=== PATIENT | female | born 1990 | race Two or more races ===

== ENCOUNTER → 2019-05-14 | Outpatient (CLI) | payer SELFPAY ==
--- NOTE | 2019-05-14 17:18 | RADIOLOGY REPORT (SQ) ---
EXAM DESCRIPTION: U/S [id number] TRNABD 1GES W/ODOP COMPLETED DATE/TIME: 05/14/2019 3:33 pm REASON FOR STUDY: Z34.81 ENCOUNTER FOR SUPRVSN OF NORMAL , FIRST TRIMESTER Z34.81 ENCOUNTE R FOR SUPRVSN OF NORMAL , FIRST TRIM COMPARISON: None. TECHNIQUE: Transvaginal and transabdominal static and realtime grayscale images acquired of the pelv is. Additional selected spectral and color Doppler images recorded. All images stored on PACs. CLINICAL AGE: LMP 02/20/2019, SIDDHARTHA 11/27/2019, EGA 11 weeks and 6 days bHCG: Not available. LIMITATIONS: None. FINDINGS: UTERUS: Unremarkable in size measuring 10.8 x 7.4 x 6.6 cm. No masses. No anomalies. GESTATIONAL SAC: There is a hypoechoic structure within the endometrial canal measuring 1.9 x 2.8 x 2 .9 cm (mean sac diameter 2.5 cm). Within the sac there is a cystic structure compatible with a yolk sac. No pole identified. YOLK SAC: Yes. POLE: Not identified RIGHT ADNEXA: Normal ovary with normal vascular flow. No adnexal free fluid. No adnexal masses. LEFT ADNEXA: Normal ovary with normal vascular flow. No adnexal free fluid. No adnexal masses. FREE FLUID: None. OTHER: Cervix measures 3.2 cm with complex luminal fluid. IMPRESSION: Discordant ultrasound and clinical dates with without pole identified highly suspi cious for failed intrauterine . No beta HCG available for correlation. Recommend serial ul trasound and HCG for correlation. Trimester of : First trimester - 0 to 13 weeks. TECHNICAL DOCUMENTATION: JOB ID: [id number] [email or web address]- All Rights Reserved Reading location - IP/workstation name: [email or web address]
== END ==
LOC: RAD 14:26
PROVIDERS: ATTEND Midwife
DX: Z34.81 Encounter for supervision of other normal pregnancy, first trimester (principal)
CPT/HCPCS: 76801

== ENCOUNTER → 2019-05-17 | Outpatient (CLI) | payer SELFPAY | LOC: OCH 12:54 | DX: O02.1 Missed abortion (principal) | CPT/HCPCS: 36415; 84702 ==

== ENCOUNTER → 2019-06-03 | Outpatient (CLI) | payer SELFPAY ==
--- NOTE | 2019-06-03 16:36 | RADIOLOGY REPORT (SQ) ---
EXAM DESCRIPTION: U/S [id number] TRNABD 1GES W/ODOP COMPLETED DATE/TIME: 06/03/2019 11:24 am REASON FOR STUDY: ENCTR FOR SUPERVISION OF OTHER NORMAL , 1ST TRIMESTER (Z34.81) Z34.81 EN COUNTER FOR SUPRVSN OF NORMAL , FIRST TRIM COMPARISON: 05/14/2019 TECHNIQUE: Transabdominal static and realtime grayscale images acquired of the pelvis. Additional se lected spectral and color Doppler images recorded. All images stored on PACs. bHCG: Not available. CLINICAL DATES: 10 weeks days LIMITATIONS: None. FINDINGS: FETUS: Single Living intrauterine . ULTRASOUND EGA: 11 weeks 0 days ULTRASOUND SIDDHARTHA: 12/23/2019 EFW: Not applicable less than 20 weeks. CRL: 4.1 cm FHR: 157 beats per minute. SURVEY: Too early to assess. AMNIOTIC FLUID: Adequate amount. PLACENTA: Not yet developed due to early gestation. SUBCHORIONIC BLEED: No SIZE OF BLEED: Not applicable. UTERUS: No masses. No anomalies. CERVICAL LENGTH: 2.5 cm Closed. RIGHT ADNEXA: Normal ovary with normal vascular flow. No adnexal free fluid. No adnexal masses. LEFT ADNEXA: Normal ovary with normal vascular flow. No adnexal free fluid. No adnexal masses. FREE FLUID: None. OTHER: No other significant finding. IMPRESSION: LIVING INTRAUTERINE . EGA 11 weeks 0 days Trimester of : First trimester - 0 to 13 weeks. TECHNICAL DOCUMENTATION: JOB ID: [id number] [employer]- All Rights Reserved rev-11/30 Reading location - IP/workstation name: [email or web address]
== END ==
LOC: RAD 10:21
PROVIDERS: ATTEND Midwife
DX: Z34.81 Encounter for supervision of other normal pregnancy, first trimester (principal)
CPT/HCPCS: 76801

== ENCOUNTER → 2019-08-07 | Outpatient (CLI) | payer SELFPAY ==
--- NOTE | 2019-08-07 15:59 | RADIOLOGY REPORT (SQ) ---
EXAM DESCRIPTION: U/S OB 14+ TRNABD 1GES W/O DOP COMPLETED DATE/TIME: 08/07/2019 3:42 pm REASON FOR STUDY: Z34.82 ENCOUNTER FOR SUPRVSN OF NORMAL , SECOND TRIMESTER Z34.82 ENCOUNT ER FOR SUPRVSN OF NORMAL , SECOND TRI COMPARISON: 06/03/2019. TECHNIQUE: Static and Dynamic grayscale imaging performed of gravid uterus using transabdominal appr oach. Additional selected color Doppler and spectral images recorded. All stored on PACS. LIMITATIONS: None. FINDINGS: FETUSES SEEN:1 EGA: 20 week 1 day. Calculated using BPD,FL,HC,AC documented on images. No discrepancy with clinical dates. SIDDHARTHA: 12/24/2019. EFW: 348 grams PERCENTILE: Not available. LVP: 4.6 x 7.1 cm. PLACENTA: Posterior. Incidental placental parisi. PRESENTATION: Cephalic. ANATOMY: HEART RATE: 149 beats per minute. FOUR CHAMBER HEART: Visualized. THREE VESSEL CORD: Yes. CORD INSERTION: Visualized. KIDNEYS AND BLADDER: Visualized. Appear normal. STOMACH: Visualized. Appears normal. SPINE: Normal as visualized. BRAIN AND LATERAL VENTRICLES: Visualized. Appear normal. OTHER: No other significant finding. MATERNAL ADNEXA: Maternal ovaries not visualized. CERVICAL LENGTH: 2.0 cm. Closed. OTHER: No other significant finding. IMPRESSION: LIVING INTRAUTERINE . ESTIMATED GESTATIONAL AGE 20 WEEK 1 DAY. NO VISUALIZED ANOMALIES. Trimester of : Second trimester - 13 weeks 1 day to 27 weeks 6 days. TECHNICAL DOCUMENTATION: JOB ID: [id number] [employer]- All Rights Reserved Reading location - IP/workstation name: [email or web address]
== END ==
LOC: RAD 14:39
PROVIDERS: ATTEND Midwife
DX: Z34.82 Encounter for supervision of other normal pregnancy, second trimester (principal); Z3A.20 20 weeks gestation of pregnancy
CPT/HCPCS: 76805

== ENCOUNTER 2019-12-18 04:58 | Inpatient (IN) | payer SELFPAY ==
[2019-12-11 11:19] LABS: ABSOLUTE EOSINOPHILS # (AUTO) 0.1 10^3/uL (0.0-0.6); ABSOLUTE LYMPHOCYTES (AUTO) 1.9 10^3/uL (0.5-4.7); ABSOLUTE MONOCYTES (AUTO) 0.6 10^3/uL (0.1-1.4); ABSOLUTE NEUT (AUTO) 4.2 10^3/uL (1.7-8.2); BASOPHILS % (AUTO) 0.6 % (0-2); EOSINOPHILS % (AUTO) 0.8 % (0-6); HEMATOCRIT 33.6 % (36.0-47.0); HEMOGLOBIN 11.8 g/dL (12.0-15.5); LYMPHOCYTES % (AUTO) 28.5 % (13-45); MEAN CORPUSCULAR HEMOGLOBIN 33.1 pg (27.0-33.4); MEAN CORPUSCULAR HGB CONC 35.2 g/dL (32.0-36.0); MEAN CORPUSCULAR VOLUME 94 fl (80-97); MONOCYTES % (AUTO) 8.1 % (3-13); PLATELET COUNT 213 10^3/uL (150-450); RED BLOOD COUNT 3.58 10^6/uL (3.72-5.28); RED CELL DISTRIBUTION WIDTH 13.4 % (11.5-14.0); TOTAL CELLS COUNTED % (AUTO) 100 %; WHITE BLOOD COUNT 6.8 10^3/uL (4.0-10.5)
[2019-12-11 11:25] LABS: APPEARANCE,URINE SLIGHTLY-CLOUDY; BILIRUBIN,URINE NEGATIVE (NEGATIVE); CALCIUM OXALATE CRYSTALS,URINE RARE /HPF; COLOR,URINE YELLOW; GLUCOSE, URINE NEGATIVE (NEGATIVE); KETONES,URINE NEGATIVE (NEGATIVE); LEUKOCYTE ESTERASE,URINE NEGATIVE (NEGATIVE); NITRITE,URINE NEGATIVE (NEGATIVE); PROTEIN,URINE NEGATIVE (NEGATIVE); URINE SPECIFIC GRAVITY 1.021
[2019-12-11 11:44] LABS: URINE AMPHETAMINES SCREEN NEGATIVE; URINE BARBITURATES SCREEN NEGATIVE; URINE BENZODIAZEPINES SCREEN NEGATIVE; URINE COCAINE SCREEN NEGATIVE; URINE MARIJUANA (THC) SCREEN NEGATIVE; URINE METHADONE SCREEN NEGATIVE; URINE PHENCYCLIDINE SCREEN NEGATIVE
[2019-12-18] MEDS ORDERED: RINGERS SOLUTION,LACTATED 1,000 ML IV PRN ×2 (05:00→09:01)
[2019-12-18] MEDS ORDERED: LACTATED RINGERS 1000 ML IV PRN (05:00)
[2019-12-18] MEDS ORDERED: CEFAZOLIN SODIUM 2 GM in DEXTROSE 5%-WATER 100 ML IV PRN (05:00)
[2019-12-18] MEDS ORDERED: RINGERS SOLUTION,LACTATED 1,000 ML IV ONE (06:30)
[2019-12-18] MEDS ORDERED: OXYTOCIN/0.9 % SODIUM CHLORIDE 30 UNIT/500 ML RTUINJ ONE (07:25)
[2019-12-18] MEDS ORDERED: KETOROLAC TROMETHAMINE INJ/PF 30 MG/1 ML SDV ONE (07:25)
[2019-12-18] MEDS ORDERED: PHENYLEPHRINE HCL INJ/PF 10 MG/1 ML SDV ONE (07:25)
[2019-12-18] MEDS ORDERED: FENTANYL CITRATE INJ/PF 100 MCG/2 ML AMPUL ONE (07:25)
[2019-12-18] MEDS ORDERED: OXYTOCIN 10 UNIT/ML VIAL ONE (07:25)
[2019-12-18] MEDS ORDERED: ONDANSETRON HCL INJ/PF 4 MG/2 ML SDV ONE (07:26)
[2019-12-18] MEDS ORDERED: ACETAMINOPHEN 1,000 MG/100 ML RTUPB IV ONE (07:26)
[2019-12-18] MEDS ORDERED: CITRIC ACID/SODIUM CITRATE ORAL SOLN 15 ML UDCUP ONE (07:35)
[2019-12-18] MEDS ORDERED: DIPHENHYDRAMINE HCL 50 MG/ML VIAL IV PRN (08:11)
[2019-12-18] MEDS ORDERED: PROMETHAZINE HCL INJ 25 MG/1 ML VIAL IV PRN ×2 (08:11→09:01)
[2019-12-18] MEDS ORDERED: MORPHINE SULFATE 10 MG/ML INJ IV PRN (08:11)
[2019-12-18] MEDS ORDERED: MEPERIDINE HCL/PF INJ 25 MG/1 ML DISP.SYRIN IV PRN (08:11)
[2019-12-18] MEDS ORDERED: FENTANYL CITRATE INJ/PF 100 MCG/2 ML AMPUL IV PRN ×3 (08:11)
[2019-12-18] MEDS ORDERED: OXYTOCIN/0.9 % SODIUM CHLORIDE 30 UNIT/500 ML RTUINJ IV PRN (09:01)
[2019-12-18] MEDS ORDERED: SIMETHICONE 80 MG TAB.CHEW PO PRN (09:01)
[2019-12-18] MEDS ORDERED: DIPH/PERTUSS(ACELL)/TETANUS VAC/PF 0.5 ML SYR (>=10YO) IM PRN (09:01)
[2019-12-18] MEDS ORDERED: ACETAMINOPHEN 1,000 MG/100 ML RTUPB IV PRN (09:01)
[2019-12-18] MEDS ORDERED: OXYCODONE-ACETAMINOPHEN 5-325 MG TABLET PO PRN (09:01)
[2019-12-18] MEDS ORDERED: MEASLES,MUMPS&RUBELLA VACC/PF 0.5 ML VIAL SUBCUT PRN (09:01)
[2019-12-18] MEDS ORDERED: ACETAMINOPHEN 325 MG TABLET PO PRN (09:01)
--- NOTE | 2019-12-18 09:07 | Operative Report ---
Operative Report DATE OF SURGERY: 12/18/19 PREOPERATIVE DIAGNOSIS: Repeat and tubal ligation with Filshie clips POSTOPERATIVE DIAGNOSIS: Same OPERATION: Repeat via low transverse uterine incision and tubal ligation with Filshie clips SURGEON: ALDA BURNS ANESTHESIA: Spinal TISSUE REMOVED OR ALTERED: Placenta COMPLICATIONS: None ESTIMATED BLOOD LOSS: 400 cc INTRAOPERATIVE FINDINGS: Dense adhesions from the uterus to the anterior abdominal wall. Viable . Normal tubes and ovaries. PROCEDURE: Patient was taken to the OR and placed in supine position after her spinal anesthesia. She is prepared and draped in sterile fashion. Lawton was placed for drainage of the bladder. The previous incision was retracted directly over top the pubic symphysis. For this reason an incision was made 4 to 5 cm above this area. Low transverse incision was made and carried down the level of the fascia. The fascial incision was made with knife and extended bilaterally with curved Mc scissors. The fascia was off the rectus muscles using sharp and blunt dissection. The rectus muscles are in the midline. The peritoneum was entered without incident. There were dense adhesions to the lower uterine segment. These were taken down sharply. Bladder blade was placed in uterine segment was identified. A low transverse incision was made creating a bladder flap. Bladder blade was placed low transverse uterine incision was made with the knife and extended with fingertips. The baby was delivered with some fundal pressure. Mouth and nose were suctioned free. The cord is doubly clamped and cut. Baby is passed off to the asset protection agent in attendance. The placenta was manually extracted with trailing membranes. The uterus was externalized wrapped in a moist lap sponge. Uterine contents wiped free. Uterus was closed with a running locking layer of 0 chromic suture using the second layer to imbricate the first completing a double layer closure of the uterus. The serosa was closed with a running 2-0 chromic stitch. The tubal ligation was carried out by identifying both fallopian tubes by following out to their fimbriated ends. A Filshie clip was placed across the mid isthmic portion of each tube. The pelvis was irrigated and suctioned free of fluid the uterus was replaced in the abdomen. A layer of Interceed was placed over the incision to try to prevent scarring. The abdominal wall peritoneum was closed with running 2-0 chromic stitch. Fascia was closed with a running 0 Vicryl in 2 segments. Edgard's layer was brought together with 0 plain gut stitch and the skin was closed with running subcuticular 4-0 undyed Vicryl stitch. The wound was dressed mother and baby did well.
[2019-12-18] MEDS: OXYCODONE-ACETAMINOPHEN 5-325 MG TABLET PO PRN ×3 (11:29→22:09)
[2019-12-18] MEDS: DOCUSATE SODIUM 100 MG CAPSULE PO SCH ×2 (12:26→18:16)
[2019-12-18] MEDS: IBUPROFEN 800 MG TABLET PO SCH ×2 (12:26→18:30)
[2019-12-18] MEDS: PRENATAL VITAMIN W DHA CAPSULE PO SCH (12:26)
[2019-12-18] MEDS: HYDROMORPHONE HCL INJ/PF 2 MG/ML AMPULE IV PRN ×3 (12:35→23:34)
[2019-12-18] MEDS ORDERED: KETOROLAC TROMETHAMINE INJ/PF 30 MG/1 ML SDV IV SCH (14:00)
[2019-12-18] MEDS: KETOROLAC TROMETHAMINE INJ/PF 30 MG/1 ML SDV IV SCH (18:16)
[2019-12-19] MEDS: KETOROLAC TROMETHAMINE INJ/PF 30 MG/1 ML SDV IV SCH (02:56)
[2019-12-19] MEDS: IBUPROFEN 800 MG TABLET PO SCH ×5 (03:56→23:51)
[2019-12-19 06:13] LABS: HEMATOCRIT 26.2 % (36.0-47.0); HEMOGLOBIN 9.2 g/dL (12.0-15.5); MEAN CORPUSCULAR HEMOGLOBIN 33.3 pg (27.0-33.4); MEAN CORPUSCULAR HGB CONC 35.3 g/dL (32.0-36.0); MEAN CORPUSCULAR VOLUME 94 fl (80-97); PLATELET COUNT 171 10^3/uL (150-450); RED BLOOD COUNT 2.78 10^6/uL (3.72-5.28); RED CELL DISTRIBUTION WIDTH 13.2 % (11.5-14.0); WHITE BLOOD COUNT 8.8 10^3/uL (4.0-10.5)
[2019-12-19] MEDS: OXYCODONE-ACETAMINOPHEN 5-325 MG TABLET PO PRN ×4 (07:28→20:46)
--- NOTE | 2019-12-19 09:56 | PDOC PROGRESS REPORT ---
Subjective-OB Progress Note for:: 12/19/19 Subjective: Pt doing well, no complaints. She reports reg diet and passing gas. Pain is controlled, bleeding is light. , bonding with baby. Physical Exam (OB) Vital Signs: Temp Pulse Resp BP Pulse Ox 98.1 F 77 16 86/50 L 99 12/19/19 08:00 12/19/19 08:00 12/19/19 08:00 12/19/19 08:00 12/19/19 08:00 Intake & Output 12/18/19 12/19/19 12/20/19 06:59 06:59 06:59 Intake Total 2380 Output Total 1650 Balance 730 Weight 73.482 kg - Dressing Removed: Yes - OPSITE dressing stuck to pressure dressing, all removed Incision: Open Note: incision intact, well approximated - Lochia Lochia Amount: Scant < 10 ml Lochia Color: Rubra/Red - Abdomen Description: Soft, Round Hernia Present: No Fundal Description: Firm, Midline Fundal Height: u/u - u/2 Objective-Diagnostic Laboratory: 12/19/19 06:07 12/19/19 06:07 WBC 8.8 RBC 2.78 L Hgb 9.2 L Hct 26.2 L MCV 94 MCH 33.3 MCHC 35.3 RDW 13.2 Plt Count 171 Assessment and Plan(PN) - Assessment and Plan (1) Anemia due to acute blood loss Is this a current diagnosis for this admission?: Yes (2) delivery delivered Is this a current diagnosis for this admission?: Yes - Time Spent with Patient Time with patient: Less than 15 minutes Medications reviewed and adjusted accordingly: Yes - Disposition Anticipated Discharge: Home Within: within 24 hours
[2019-12-19] MEDS: PRENATAL VITAMIN W DHA CAPSULE PO SCH (10:13)
[2019-12-19] MEDS: DOCUSATE SODIUM 100 MG CAPSULE PO SCH ×2 (10:13→17:29)
[2019-12-20] MEDS: IBUPROFEN 800 MG TABLET PO SCH ×2 (05:29→11:32)
[2019-12-20] MEDS: DOCUSATE SODIUM 100 MG CAPSULE PO SCH (09:40)
[2019-12-20] MEDS: PRENATAL VITAMIN W DHA CAPSULE PO SCH (09:40)
--- NOTE | 2019-12-20 10:14 | PDOC DISCHARGE SUMMARY ---
Impression - Admit/DC Date/PCP Admission Date/Primary Care Provider: 12/18/19 04:58 MURRAY BURNS CNM Discharge Date: 12/20/19 - Discharge Diagnosis (1) Anemia due to acute blood loss Is this a current diagnosis for this admission?: Yes (2) delivery delivered Is this a current diagnosis for this admission?: Yes - Additional Information Resuscitation Status: Full Code Discharge Diet: Regular Discharge Activity: Balance Activity w/Rest, No Lifting Over 10 Pounds, No L ifting/Push/Pulling, Pelvic Rest, No tub bath Referrals: MURRAY BURNS CNM [Primary Care Provider] - Prescriptions: Oxycodone HCl/Acetaminophen [Percocet 5-325 mg Tablet] 1 tab PO Q4HP PRN #30 tablet PRN Reason: For Pain Scale 3-5 Ibuprofen [Motrin 800 mg Tablet] 800 mg PO Q8HP PRN #60 tablet PRN Reason: Ferrous Sulfate [Jose-Time] 325 mg PO BID #30 tablet Home Medications: Prenat 115/Iron Fum/Folic/Dss [ 19 Tablet] 1 each PO DAILY 12/11/19 Ferrous Sulfate [Jose-Time] 325 mg PO BID #30 tablet 12/20/19 Ibuprofen [Motrin 800 mg Tablet] 800 mg PO Q8HP PRN #60 tablet 12/20/19 Oxycodone HCl/Acetaminophen [Percocet 5-325 mg Tablet] 1 tab PO Q4HP PRN #30 tablet 12/20/19 HPI Reason(s) for Admission: Ceasarean Section-Repeat Procedures: None Intrapartum Procedure(s): : Low Cervical, Transverse Results Laboratory Results: WBC 8.8 10^3/uL (4.0-10.5) 12/19/19 06:07 RBC 2.78 10^6/uL (3.72-5.28) L 12/19/19 06:07 Hgb 9.2 g/dL (12.0-15.5) L 12/19/19 06:07 Hct 26.2 % (36.0-47.0) L 12/19/19 06:07 MCV 94 fl (80-97) 12/19/19 06:07 MCH 33.3 pg (27.0-33.4) 12/19/19 06:07 MCHC 35.3 g/dL (32.0-36.0) 12/19/19 06:07 RDW 13.2 % (11.5-14.0) 12/19/19 06:07 Plt Count 171 10^3/uL (150-450) 12/19/19 06:07 Lymph % (Auto) 28.5 % (13-45) 12/11/19 10:10 Traill % (Auto) 8.1 % (3-13) 12/11/19 10:10 Eos % (Auto) 0.8 % (0-6) 12/11/19 10:10 Baso % (Auto) 0.6 % (0-2) 12/11/19 10:10 Absolute Neuts (auto) 4.2 10^3/uL (1.7-8.2) 12/11/19 10:10 Absolute Lymphs (auto) 1.9 10^3/uL (0.5-4.7) 12/11/19 10:10 Absolute Monos (auto) 0.6 10^3/uL (0.1-1.4) 12/11/19 10:10 Absolute Eos (auto) 0.1 10^3/uL (0.0-0.6) 12/11/19 10:10 Absolute Basos (auto) 0.0 10^3/uL (0.0-0.2) 12/11/19 10:10 Seg Neutrophils % 62.0 % (42-78) 12/11/19 10:10 Urine Color YELLOW 12/11/19 10:10 Urine Appearance SLIGHTLY-CLOUDY 12/11/19 10:10 Urine pH 6.0 (5.0-9.0) 12/11/19 10:10 Ur Specific [place] 1.021 12/11/19 10:10 Urine Protein NEGATIVE mg/dL (NEGATIVE) 12/11/19 10:10 Urine Glucose (UA) NEGATIVE mg/dL (NEGATIVE) 12/11/19 10:10 Urine Ketones NEGATIVE mg/dL (NEGATIVE) 12/11/19 10:10 Urine Blood NEGATIVE (NEGATIVE) 12/11/19 10:10 Urine Nitrite NEGATIVE (NEGATIVE) 12/11/19 10:10 Urine Bilirubin NEGATIVE (NEGATIVE) 12/11/19 10:10 Urine Urobilinogen 4.0 mg/dL (<2.0) H 12/11/19 10:10 Ur Leukocyte Esterase NEGATIVE (NEGATIVE) 12/11/19 10:10 Urine WBC (Auto) 2 /HPF 12/11/19 10:10 Urine RBC (Auto) 9 /HPF 12/11/19 10:10 Urine Bacteria (Auto) TRACE /HPF 12/11/19 10:10 Squamous Epi Cells Auto 12 /HPF 12/11/19 10:10 Calcium Oxalate Cr Auto RARE /HPF 12/11/19 10:10 Urine Mucus (Auto) OCC /LPF 12/11/19 10:10 Urine Ascorbic Acid NEGATIVE (NEGATIVE) 12/11/19 10:10 Urine Opiates Screen NEGATIVE 12/11/19 10:10 Urine Methadone Screen NEGATIVE 12/11/19 10:10 Ur Barbiturates Screen NEGATIVE 12/11/19 10:10 Ur Phencyclidine Scrn NEGATIVE 12/11/19 10:10 Ur Amphetamines Screen NEGATIVE 12/11/19 10:10 U Benzodiazepines Scrn NEGATIVE 12/11/19 10:10 Urine Cocaine Screen NEGATIVE 12/11/19 10:10 U Marijuana (THC) Screen NEGATIVE 12/11/19 10:10 COVID-19 Source NASOPHARYNGEAL 12/11/19 10:05 COVID-19 (JOSHUA) NOT DETECTED 12/11/19 10:05 Blood Type O POSITIVE 12/17/19 12:06 Antibody Screen NEGATIVE 12/17/19 12:06 Plan Plan of Treatment: f/u at [facility] for incision check as scheduled Time Spent: Less than 30 Minutes
[2019-12-20 10:32] VITALS: BP 93/48
[2019-12-20] MEDS: OXYCODONE-ACETAMINOPHEN 5-325 MG TABLET PO PRN (11:32)
== END 2019-12-20 12:15 | disposition home or self-care (01) | DRG 784 ==
LOC: 2S 04:58
PROVIDERS: ADMIT Obstetrics & Gynecology; ATTEND Obstetrics & Gynecology
PROC: 10D00Z1 Extraction of Products of Conception, Low, Open Approach (ICD-10-PCS; principal; 2019-12-18)
PROC: 0UL70CZ Occlusion of Bilateral Fallopian Tubes with Extraluminal Device, Open Approach (ICD-10-PCS; 2019-12-18)
DX: O34.211 Maternal care for low transverse scar from previous cesarean delivery (principal); D62 Acute posthemorrhagic anemia; O99.02 Anemia complicating childbirth; O99.89 Other specified diseases and conditions complicating pregnancy, childbirth and the puerperium; N73.6 Female pelvic peritoneal adhesions (postinfective); Z30.2 Encounter for sterilization; Z37.0 Single live birth
CPT/HCPCS: 1961; 36415; 59025; 80307; 81001; 85025; 85027; 86850; 86900; 86901; 87635; 94760; 94799; C9803; J0131; J0690; J1170; J1885; J2370; J2405; J2590; J3010; J3490; J7060; J7120